=== PATIENT | female | born 1970 | race Caucasian/White ===

== ENCOUNTER 2016-08-17 21:44 | Observation (INO) | payer OTHER ==
[~2016-08-17] VITALS: Ht 170.2 cm; Wt 116.4 kg
[~2016-08-17 21:44] MED LIST: CEFZIL; METFORMIN HCL500 M4 PO; METFORMIN HCL500 MG PO; MOBIC7.5 MG PO; PERCOCET 5/31 TABLET; TREXIMET 85-1 TABLET PO; TRIAMTERENE-HC1 EAC1 PO; ULTRAM50 MG PO; VERAPAMIL HCL180 MG PO
[2016-08-17 22:38] LABS: HEMATOCRIT 40.3 % (36.0-46.0); MCH 28.9 PG (29.0-34.0); MCV 90.2 FL (83-99); MEAN PLAT.VOLUME 9.4 uM^3 (9.5-12.4); PLATELET COUNT 270 K/uL (156-360); RBC DIS.WIDTH-CV 13.5 % (11.8-14.6); RBC DIS.WIDTH-SD 42.9 % (39-53); RED BLOOD COUNT 4.47 M/uL (3.80-5.20); WHITE BLOOD COUNT 12.1 K/uL (4.1-10.2)
[2016-08-17 22:52] LABS: CHLORIDE 107 mEq/L (99-109); SODIUM 140 mEq/L (136-147)
[2016-08-17 22:53] LABS: GLUCOSE 125 mg/dL (70-99)
[2016-08-17 22:55] LABS: ANION GAP 8 MEQ/L (2-14)
[2016-08-17 22:57] LABS: GFR ESTIMATE (CALCULATED) > 59 mL/min/
[2016-08-17 22:58] LABS: UREA NITROGEN (BUN) 23 mg/dL (9-23)
[2016-08-17 22:59] LABS: TROP-I INTERPRETATION NEGATIVE; TROPONIN-I 0.01 ng/mL (0.0-0.30)
[2016-08-17 23:49] LABS: D-DIMER ELISA 0.56 mg/L FEU (< 0.57)
[2016-08-18] MEDS ORDERED: ACTOS30 MG PO (00:52)
[2016-08-18] MEDS ORDERED: VERAPAMIL HCL240 MG PO (00:52)
[2016-08-18] MEDS ORDERED: PAMELOR10 MG PO (00:52)
[2016-08-18] MEDS ORDERED: VOLTAREN-XR100 MG PO (00:53)
[2016-08-18] MEDS ORDERED: ALEVE220 MG PO (00:53)
[2016-08-18] MEDS ORDERED: RESTASIS 01 DROP/0.4 BOTH EYES (00:54)
[2016-08-18 05:34] LABS: TROP-I INTERPRETATION NEGATIVE; TROPONIN-I < 0.01 ng/mL (0.0-0.30)
[2016-08-18 06:40] LABS: ADD MIUA? YES; BILIRUBIN NEGATIVE; BLOOD MODERATE; COLOR COLORLESS ((YELLOW)); GLUCOSE (STRIP) NEGATIVE; KETONES NEGATIVE; LEUKOCYTES NEGATIVE; NITRITE NEGATIVE; PROTEIN (STRIP) NEGATIVE; SPECIFIC GRAVITY 1.006 (1.000-1.030); UROBILINOGEN 0.2 MG/DL (0.2-1.0)
[2016-08-18 06:54] LABS: BACTERIA NONE SEEN /HPF; EPITHELIAL CELLS 1+ /HPF; MUCUS NONE SEEN /LPF; RED BLOOD CELLS 0-5 /HPF (0-5); WHITE BLOOD CELLS 0-5 /HPF (0-5)
[2016-08-18 07:11] LABS: POINT-OF-CARE METER ID UU13113702
[2016-08-18 08:59] LABS: HEMATOCRIT 42.7 % (36.0-46.0); MCH 29.4 PG (29.0-34.0); MEAN PLAT.VOLUME 9.3 uM^3 (9.5-12.4); PLATELET COUNT 265 K/uL (156-360); RBC DIS.WIDTH-CV 13.3 % (11.8-14.6); RBC DIS.WIDTH-SD 42.5 % (39-53); WHITE BLOOD COUNT 9.8 K/uL (4.1-10.2)
[2016-08-18 09:11] LABS: CHLORIDE 108 mEq/L (99-109); SODIUM 142 mEq/L (136-147)
[2016-08-18 09:13] LABS: GLUCOSE 81 mg/dL (70-99)
[2016-08-18 09:14] LABS: ANION GAP 12 MEQ/L (2-14)
[2016-08-18 09:15] LABS: TOTAL BILIRUBIN 0.5 mg/dL (0.0-1.0)
[2016-08-18 09:16] LABS: ALKALINE PHOSPHATASE 38 IU/L (3-129)
[2016-08-18 09:17] LABS: GFR ESTIMATE (CALCULATED) > 59 mL/min/
[2016-08-18 09:18] LABS: UREA NITROGEN (BUN) 13 mg/dL (9-23)
[2016-08-18 11:14] LABS: TROP-I INTERPRETATION NEGATIVE; TROPONIN-I < 0.01 ng/mL (0.0-0.30)
[2016-08-18 11:31] LABS: POINT-OF-CARE METER ID UU13113702
[2016-08-18] MEDS ORDERED: PROTONIX40 MG PO (11:58)
[2016-08-18 13:04] VITALS: BP 156/86
== END 2016-08-18 13:04 | disposition home or self-care (01) ==
LOC: EME 21:44 → EDOF 08-18 03:17
PROVIDERS: Emergency Medicine; Internal Medicine
DX: R07.9 Chest pain, unspecified (principal); R10.13 Epigastric pain; R94.31 Abnormal electrocardiogram [ECG] [EKG]; E11.9 Type 2 diabetes mellitus without complications; I10 Essential (primary) hypertension; G43.909 Migraine, unspecified, not intractable, without status migrainosus; M72.2 Plantar fascial fibromatosis; D72.829 Elevated white blood cell count, unspecified; Z87.01 Personal history of pneumonia (recurrent); Z79.1 Long term (current) use of non-steroidal anti-inflammatories (NSAID); Z83.2 Family history of diseases of the blood and blood-forming organs and certain disorders involving the immune mechanism
CPT/HCPCS: 71020; 71275; 80048; 80053; 81003; 82948; 84484; 84702; 85027; 85379; 93005; 99202; 99281; 99285; G0378; J1644; J1815; J7030